=== PATIENT | female | born 1950 | race Two or more races ===

== ENCOUNTER 2024-02-24 10:56 | Outpatient (AMB) | payer MEDICARE, BC, SELFPAY ==
[2024-02-24 11:13] VITALS: BP 139/83; PULSE 73; RESP 17; TEMP 36.3; O2SAT 98; BMI 26.5
--- NOTE | 2024-02-24 11:13 | ORTHONT_ITS ---
Vital signs 02/24/24 11:13 Height 1.52 m Height Method Stated Weight 61.689 kg Weight Measurement Method Standing Scale BMI 26.5 BP 139/83 H Blood Pressure Source Automatic Cuff Blood Pressure Location Right Upper Arm Position Sitting Respiration 17 Pulse 73 Pulse Source Monitor Temp 97.4 F Temp Source Temporal Artery Scan Pulse Oximetry (%) 98 Oxygen Delivery Method Room Air Med/Allergies Allergies & Medications Allergies NKA* Allergy (Uncoded 02/24/24 11:14) Medication Reconciliation amlodipine 5 mg tablet (Norvasc) 5 mg PO BID #0 tabs 02/25/17 [History Confirmed 02/24/24] valsartan 160 mg tablet (Diovan) 160 mg PO BID #0 tabs 02/25/17 [History Confirmed 02/24/24] biotin 5,000 mcg disintegrating tablet 1 tab PO QDAY 09/26/17 [History Confirmed 02/24/24] cholecalciferol (vitamin D3) 50 mcg (2,000 unit) capsule (Vitamin D3) 1 tab PO QDAY 09/26/17 [History Confirmed 02/24/24] krill [id number] 1,500 mg-165 mg-67.5 mg capsule (Krill Oil ([place] 3 and 6)) 1 tab PO QDAY 09/26/17 [History Confirmed 02/24/24] simvastatin 10 mg tablet 10 mg PO QPM 09/26/17 [History Confirmed 02/24/24] meloxicam 7.5 mg tablet 7.5 mg PO QDAY #45 tabs 02/24/24 [Rx] Subjective Visit Visit for: follow up visit and knee Immunization / Flu Flu Vaccine in the Last 12 Months: Yes Flu Vaccine Exclusion Criteria: Already Received History of Present Illness Chief complaint: SURGERY CLEARANCE/KNEE Patient is a pleasant 73-year-old female with right hip pain and knee pain. She had a previous right knee injection and had minimal relief. She reports the pain is in her groin. She has difficulty internally rotating and rotating her hips. She is difficulty putting on socks and shoes. The pain can be excruciating but today it is okay. she has tried Tylenol and Advil. Personal History Occupation: RETIRED Red flag PMH: none Pain Pain level (0-10): 8 Pain duration: ALL DAY Pain location: groin, outside (lateral) and anterior Pain quality: sharp, dull and aching Pain timing: increases with activity Associated signs & symptoms: weakness and stiffness Ambulatory data Ambulatory device: none Treatments Improvement with previous injections: No Improvement with PT: No Improvement with NSAIDS: n/a Review of Systems Review of Systems: All systems negative unless otherwise noted in HPI. Exam Exam Patient is in no acute distress and is cooperative with the examination today. Breathing is nonlabored. In no respiratory distress. Patient has no paraspinal tenderness. Spinal deformity [cannot] be appreciated. The gait of the patient is [nonantalgic] Bilateral extremities were evaluated and demonstrates sensation intact to light touch. Palpable pedal pulses are present. No significant edema is present. Bilateral knees were examined and the patient has full strength and range of motion.. The left hip was examined. Patient was able to flex to 90 degrees, adduct to 30 degrees, abduct to 40 degrees, internally rotate to 20 degrees, and externally rotate to 20 degrees. Patient has a negative logroll. Stinchfield is negative. The patient is nontender diffusely to touch. The right hip was examined. Patient was able to flex to [90] degrees, adduct to [30] degrees, abduct to [40] degrees, internally rotate to [20] degrees, and externally rotate to [20] degrees. Patient has a Positive logroll. The stinchfield is Positive Assessment and Plan Problem List (1) Arthritis of right hip: Status: Acute Plan: Patient is a 73-year-old female with right hip pain and right hip arthritis.We discussed nonoperative versus operative options. We will start her with a arthritis medication such as meloxicam and we will get her set up for a hip injection. We will see the patient back in approximately 1 month after her hip injection to see how her relief is Advanced Care Planning Discussion Advance care planning discussed with:: patient Office Procedures GNS Level of Care Nursing/Assessment Patient Status: Established Patient Nursing Assessment/Reassesment: Medication Reconciliation, Update PMH in EMR and Vital Signs Coordination of Care: Complex Care and Chronic Disease 1-5, Education Complex Pt/Fam, Consent,records obtained, informed consent, Results/Orders obtained and Staff clarify orders Established Patient Charge Established Patient Point Assignment: 95 Established Patient Point Charge: EP Level 3 (80-115) Past Medical History Past Medical History Have you ever been diagnosed with any of the following: Neurological Problems Seizures: No Cardiology Problems Hypercholesterolemia: Yes (PO MEDS) Congestive Heart Failure: No Hypertension: Yes (PO MEDS) Respiratory Problems Chronic Obstructive Pulmonary Disease (COPD): No Smoking: No Smoking Exposure: No Stomache/Intestinal Problems Hepatitis: No Colorectal Cancer: No Genital/Urinary Problems Renal Disease: No Prostate Cancer: No Reproductive Problems Breast Cancer: Yes (LEFT BREAST) Endometriosis: No Genital Herpes: No Gonorrhea: No Pelvic Inflammatory Disease: No Previous Pregnancies: Yes () Syphilis: No Testicular Cancer: No Uterine Prolapse: No Musculoskeletal Problems Bone Cancer: No Endocrine Problems Diabetes Mellitus Type 1: No Diabetes Mellitus Type 2: No Blood Problems Anemia: No Leukemia: No Hemophilia: No Thalassemia: No Sickle Cell Disease: No Clotting Problems: No Other Problems Hospitalization: No Down Syndrome: No Developmental Delay: No Shingles: No Falls: No Blood Transfusions: No Blood Transfusion Reaction: No Anesthesia Reactions: No Organ Transplant: No Chemotherapy: No Radiation Therapy: Yes (LEFT BREAST CA 2016) Hyperbaric Therapy: No MRSA: No VRSA: No Vancomycin-Resistant Enterococci: No Human Immunodeficiency Virus (HIV): No Chicken Pox: No Measles: No Mumps: No Rubella (Bangladeshi Measles): No Pertussis: No Clostridium Difficile: No Cervical Cancer: No Lung Cancer: No Ovarian Cancer: No
== END 2024-02-24 11:35 | disposition home or self-care (01) ==
LOC: HODSRG 10:56
PROVIDERS: PCP Specialist; Referring Provider Specialist; Supervising Provider Orthopaedic Surgery Adult Reconstructive Orthopaedic Surgery; Visit Provider Orthopaedic Surgery Adult Reconstructive Orthopaedic Surgery
DX: M16.11 Unilateral primary osteoarthritis, right hip (principal); I10 Essential (primary) hypertension; E78.00 Pure hypercholesterolemia, unspecified
CPT/HCPCS: 99213; G0463

== ENCOUNTER 2024-04-27 14:08 | Outpatient (AMB) | payer MEDICARE, BC, SELFPAY ==
--- NOTE | 2024-04-27 14:31 | PD.ORTHCLVIS ---
Vital signs 04/27/24 14:33 Height 1.52 m Height Method Stated Weight 62.142 kg Weight Measurement Method Standing Scale BMI 26.9 BP 144/82 H Blood Pressure Source Automatic Cuff Blood Pressure Location Left Upper Arm Position Sitting Respiration 19 Pulse 76 Pulse Source Monitor Temp 97.8 F Temp Source Temporal Artery Scan Pulse Oximetry (%) 96 Oxygen Delivery Method Room Air Med/Allergies Allergies & Medications Allergies NKA* Allergy (Uncoded 04/27/24 14:34) Medication Reconciliation amlodipine 5 mg tablet (Norvasc) 5 mg PO BID #0 tabs 02/25/17 [History Confirmed 04/27/24] valsartan 160 mg tablet (Diovan) 160 mg PO BID #0 tabs 02/25/17 [History Confirmed 04/27/24] biotin 5,000 mcg disintegrating tablet 1 tab PO QDAY 09/26/17 [History Confirmed 04/27/24] cholecalciferol (vitamin D3) 50 mcg (2,000 unit) capsule (Vitamin D3) 1 tab PO QDAY 09/26/17 [History Confirmed 04/27/24] krill [id number]-koj-astax 1,500 mg-165 mg-67.5 mg capsule (Krill Oil ([place] 3 and 6)) 1 tab PO QDAY 09/26/17 [History Confirmed 04/27/24] simvastatin 10 mg tablet 10 mg PO QPM 09/26/17 [History Confirmed 04/27/24] meloxicam 7.5 mg tablet 7.5 mg PO QDAY #45 tabs 02/24/24 [Rx Confirmed 04/27/24] Exam Exam Patient is in no acute distress and is cooperative with the examination today. Breathing is nonlabored. In no respiratory distress. Patient has no paraspinal tenderness. Spinal deformity [cannot] be appreciated. The gait of the patient is [nonantalgic] Bilateral extremities were evaluated and demonstrates sensation intact to light touch. Palpable pedal pulses are present. No significant edema is present. Bilateral knees were examined and the patient has full strength and range of motion.. The left hip was examined. Patient was able to flex to 90 degrees, adduct to 30 degrees, abduct to 40 degrees, internally rotate to 20 degrees, and externally rotate to 20 degrees. Patient has a negative logroll. Stinchfield is negative. The patient is nontender diffusely to touch. The right hip was examined. Patient was able to flex to [90] degrees, adduct to [30] degrees, abduct to [40] degrees, internally rotate to [20] degrees, and externally rotate to [20] degrees. Patient has a Positive logroll. The stinchfield is Positive X-rays demonstrate moderate to severe right hip arthritis with joint space narrowing and osteophytes Assessment and Plan Problem List (1) Arthritis of right hip: Status: Acute Plan: Patient is a 73-year-old female with right hip arthritis of significant severity. We discussed total hip replacement a reasonable option. She reports he is not ready for hip replacement at this time which I think is okay. We can try continued conservative management. She would like to try physical therapy for now. She did not do well with meloxicam Advanced Care Planning Discussion Advance care planning discussed with:: patient Office Procedures GNS Level of Care Nursing/Assessment Patient Status: Established Patient Nursing Assessment/Reassesment: Medication Reconciliation, Update PMH in EMR and Vital Signs Coordination of Care: Complex Care and Chronic Disease 1-5, Education Complex Pt/Fam, Consent,records obtained, informed consent, Results/Orders obtained and Staff clarify orders Established Patient Charge Established Patient Point Assignment: 95 Established Patient Point Charge: EP Level 3 (80-115) MA Intake Visit Data Collection New Patient or Established: Established Patient (seen at [facility] within 3 years) Reason for Visit:: XRAY RESULTS HIP AND KNEE Seen by Clinical Staff ONLY (RN/MA): No Pipe Joints Supervisor Required: No PCP or OBGYN visit in last 3 months: Yes Hx Now: No Do You Feel Safe at Home: Yes Authorities Contacted: N/A Questionairres Past Medical History Past Medical History Have you ever been diagnosed with any of the following: Neurological Problems Seizures: No Cardiology Problems Hypercholesterolemia: Yes (PO MEDS) Congestive Heart Failure: No Hypertension: Yes (PO MEDS) Respiratory Problems Chronic Obstructive Pulmonary Disease (COPD): No Smoking: No Smoking Exposure: No Stomache/Intestinal Problems Hepatitis: No Colorectal Cancer: No Genital/Urinary Problems Renal Disease: No Prostate Cancer: No Reproductive Problems Breast Cancer: Yes (LEFT BREAST) Endometriosis: No Genital Herpes: No Gonorrhea: No Pelvic Inflammatory Disease: No Previous Pregnancies: Yes () Syphilis: No Testicular Cancer: No Uterine Prolapse: No Musculoskeletal Problems Bone Cancer: No Endocrine Problems Diabetes Mellitus Type 1: No Diabetes Mellitus Type 2: No Blood Problems Anemia: No Leukemia: No Hemophilia: No Thalassemia: No Sickle Cell Disease: No Clotting Problems: No Other Problems Hospitalization: No Down Syndrome: No Developmental Delay: No Shingles: No Falls: No Blood Transfusions: No Blood Transfusion Reaction: No Anesthesia Reactions: No Organ Transplant: No Chemotherapy: No Radiation Therapy: Yes (LEFT BREAST CA 2016) Hyperbaric Therapy: No MRSA: No VRSA: No Vancomycin-Resistant Enterococci: No Human Immunodeficiency Virus (HIV): No Chicken Pox: No Measles: No Mumps: No Rubella (Martiniquais Measles): No Pertussis: No Clostridium Difficile: No Cervical Cancer: No Lung Cancer: No Ovarian Cancer: No Subjective Visit Visit for: follow up visit and x-rays (RESULTS) Immunization / Flu Flu Vaccine in the Last 12 Months: No Flu Vaccine Exclusion Criteria: No Exclusion Criteria History of Present Illness Chief complaint: Right hip pain Patient is a 73-year-old female with right hip pain. She had a right hip injection 2 months ago and reported dramatic relief. The right hip injection helped with both her hip and knee pain. She reports difficulty crossing her legs Pain Pain level (0-10): 6 Pain duration: ALL DAY Pain location: inside (medial) Pain quality: sharp, dull and aching Pain timing: night, increases with activity and stairs Associated signs & symptoms: none Ambulatory data Ambulatory device: none Treatments Improvement with previous injections: No Improvement with PT: No Improvement with NSAIDS: no Review of Systems Review of Systems: All systems negative unless otherwise noted in HPI.
[2024-04-27 14:33] VITALS: BP 144/82; PULSE 76; RESP 19; TEMP 36.6; O2SAT 96; BMI 26.9
== END 2024-04-27 14:46 | disposition home or self-care (01) ==
LOC: HODSRG 14:08
PROVIDERS: PCP Specialist; Referring Provider Specialist; Supervising Provider Orthopaedic Surgery Adult Reconstructive Orthopaedic Surgery; Visit Provider Orthopaedic Surgery Adult Reconstructive Orthopaedic Surgery
DX: M16.11 Unilateral primary osteoarthritis, right hip (principal); I10 Essential (primary) hypertension; E78.00 Pure hypercholesterolemia, unspecified
CPT/HCPCS: 73502; 73562; 99213; G0463

== ENCOUNTER → 2024-04-27 | Outpatient (CLI) | payer MEDICARE, BC, SELFPAY ==
--- NOTE | 2024-04-27 08:55 | XR_ITS ---
Examination: Right knee 4 views TECHNIQUE: Standing AP oblique lateral axial right knee 4 views Exam date and time: April 27, 2024 0949 hours Comparison February 05, 2023 INDICATIONS: Onset right knee pain beginning one year ago FINDINGS: Spurring of the intercondylar spines Mild to moderate tricompartment osteoarthritis, most prominent patellofemoral joint No fracture IMPRESSION: Mild to moderate tricompartment osteoarthritis
--- NOTE | 2024-04-27 09:44 | XR_ITS ---
Examination:Right hip AP, lateral, AP pelvis 3 views Technique: Hip AP lateral, AP pelvis, 3 views Exam date and time:April 27, 2024 0958 hours INDICATIONS: Right hip pain beginning one year ago. FINDINGS: Moderate osteopenia Advanced narrowing right hip joint No hip or pelvic fracture IMPRESSION: Advanced narrowing right hip joint.
== END | disposition home or self-care (01) ==
PROVIDERS: PCP Specialist; Referring Provider Orthopaedic Surgery Adult Reconstructive Orthopaedic Surgery; Visit Provider Orthopaedic Surgery Adult Reconstructive Orthopaedic Surgery
DX: M17.11 Unilateral primary osteoarthritis, right knee (principal); M25.851 Other specified joint disorders, right hip
CPT/HCPCS: 73502; 73562

== ENCOUNTER → 2024-05-19 | Outpatient (CLI) | payer MEDICARE, BC, SELFPAY ==
[2024-05-19 11:47] LABS: Alanine Aminotransferase 12 U/L (10-49); Albumin, Serum 4.7 gm/dL (3.4-4.8); Alkaline Phosphatase 77 U/L (46-116); Anion Gap 12 (7-16); Aspartate Amino Transferase 16 U/L (0-34); BUN/Creatinine Ratio 16 Ratio (12-20); Bilirubin,Total 0.8 mg/dL (0.3-1.2); Blood Urea Nitrogen 11 mg/dL (9-23); Calcium 9.7 mg/dL (8.3-10.6); Calcium (Corrected) 9.7 mg/dL (8.5-10.1); Carbon Dioxide 24.1 mMol/L (20.0-31.0); Cardiac Risk Estimate 2.2 RATIO (3.7-5.6); Chloride 107 mMol/L (98-107); Cholesterol 153 mg/dL (132-200); Creatinine (Component) 0.7 mg/dL (0.6-1.3); Globulin 2.3 gm/dL (2.3-3.5); Glucose 110 mg/dL (74-106); HDL Cholesterol 71 mg/dL (40-60); LDL Cholesterol,Calculated 62 mg/dL (0-130); Osmolality,Calculated 285 (275-295); Potassium 3.8 mMol/L (3.4-5.1); Sodium 143 mMol/L (136-145); Triglycerides 102 mg/dL (30-150); eGFR > 60 See Note
[2024-05-19 11:53] LABS: Creatinine MALB Rnd Ur 81 mg/dL (30-125); Microalbumin Creat Ratio 27 mg/gCrea (<30); Microalbumin, Random Urine 22 mg/L (0-300)
== END | disposition home or self-care (01) ==
LOC: COPL 10:00
PROVIDERS: PCP Specialist; Referring Provider Specialist; Visit Provider Specialist
DX: E78.2 Mixed hyperlipidemia (principal); I10 Essential (primary) hypertension
CPT/HCPCS: 36415; 80053; 80061; 82043; 82570

== ENCOUNTER 2024-05-21 13:54 | Outpatient (AMB) | payer MEDICARE, BC, SELFPAY ==
--- NOTE | 2024-05-21 14:04 | ORTHONT_ITS ---
Vital signs 05/21/24 14:05 Height 1.52 m Height Method Stated Weight 60.923 kg Weight Measurement Method Standing Scale BMI 26.4 BP 139/82 H Blood Pressure Source Automatic Cuff Blood Pressure Location Left Upper Arm Position Sitting Respiration 18 Pulse 80 Pulse Source Monitor Temp 96.2 F L Temp Source Temporal Artery Scan Pulse Oximetry (%) 98 Oxygen Delivery Method Room Air Med/Allergies Allergies & Medications Allergies NKA* Allergy (Uncoded 05/21/24 14:06) Medication Reconciliation amlodipine 5 mg tablet (Norvasc) 5 mg PO BID #0 tabs 02/25/17 [History Confirmed 05/21/24] valsartan 160 mg tablet (Diovan) 160 mg PO BID #0 tabs 02/25/17 [History Confirmed 05/21/24] biotin 5,000 mcg disintegrating tablet 1 tab PO QDAY 09/26/17 [History Confirmed 05/21/24] cholecalciferol (vitamin D3) 50 mcg (2,000 unit) capsule (Vitamin D3) 1 tab PO QDAY 09/26/17 [History Confirmed 05/21/24] krill [id number]-aic-[id number]-yow-astax 1,500 mg-165 mg-67.5 mg capsule (Krill Oil ([place] 3 and 6)) 1 tab PO QDAY 09/26/17 [History Confirmed 05/21/24] simvastatin 10 mg tablet 10 mg PO QPM 09/26/17 [History Confirmed 05/21/24] meloxicam 7.5 mg tablet 7.5 mg PO QDAY #45 tabs 02/24/24 [Rx Confirmed 05/21/24] Exam Exam Patient is in no acute distress and is cooperative with the examination today. Breathing is nonlabored. In no respiratory distress. Patient has no paraspinal tenderness. Spinal deformity [cannot] be appreciated. The gait of the patient is [nonantalgic] Bilateral extremities were evaluated and demonstrates sensation intact to light touch. Palpable pedal pulses are present. No significant edema is present. Bilateral knees were examined and the patient has full strength and range of motion.. The left hip was examined. Patient was able to flex to 90 degrees, adduct to 30 degrees, abduct to 40 degrees, internally rotate to 20 degrees, and externally rotate to 20 degrees. Patient has a negative logroll. Stinchfield is negative. The patient is nontender diffusely to touch. The right hip was examined. Patient was able to flex to [90] degrees, adduct to [30] degrees, abduct to [40] degrees, internally rotate to [20] degrees, and externally rotate to [20] degrees. Patient has a Positive logroll. The stinchfield is Positive X-rays demonstrate moderate to severe right hip arthritis with joint space narrowing and osteophytes Assessment and Plan Problem List (1) Arthritis of right hip: Status: Acute Plan: Patient is a 73-year-old female with right hip arthritis of significant severity. We discussed total hip replacement as a reasonable option. At this point in time, she would like to proceed with a total hip replacement. I will do an anterior approach given her body habitus. She is failed injections, anti- inflammatories and thus we consider total hip placement a reasonable option The nature and purpose of the total hip replacement, alternative method(s) of treatment, the material risks involved, and the possibility of complications we re fully explained to the patient. The patient does NOT have any of the following contraindications to FRACISCO: - Active infection of the hip joint, OR - Active systemic bacteremia, OR - Active skin infection or open wound at surgical site, OR - Neuropathic arthritis, OR - Severe, rapidly progressive neurological disease, OR - Severe medical condition that makes risks of the surgery outweigh the poten tial benefit The patient was told the most common risks and complications associated with a total hip replacement include, but are not limited to: blood clots in the leg, fatal pulmonary embolism, dislocation of the prosthesis, intraoperative and postoperative fractures of the femur or acetabulum, infection, failure of the prosthesis or grafting materials, complications from anesthesia, reactions to blood transfusions, postoperative leg length inequality, instability of the hip replacement, nerve damage or injury, vascular injury, delayed wound healing, infection, other injury or even . In addition, there are risks associated with anesthesia given during this operation. Also, the patient was told that after undergoing a total hip replacement there may still be persistent pain or disability. The patient was informed that the success of this operation in part depends upon the mechanical devices which are going to be implanted and that these devices can fail or malfunction, and may need to be repaired or replaced and there are no guarantees as to the longevity of this device or its parts and that it or its parts could fail prematurely. The patient was also notified that during the course of surgery, there may be a need to use bone graft from donors, and that any bone graft used will be carefully screened for communicable diseases, including AIDS, hepatitis, Jose-Creutzfeldt, or other diseases, but despite the screening procedures, there is a small chance that they could contract one of these diseases. Finally, the patient was asked to follow completely and fully with all advice and recommended treatments, and that recovery and ultimate outcome are affected by their compliance with recommended treatment. We discussed the risks, benefits and treatment alternatives, and the patient is interested in proceeding with surgery. We will try to set this up as expeditiously as possible. Advanced Care Planning Discussion Advance care planning discussed with:: patient Office Procedures GNS Level of Care Nursing/Assessment Patient Status: Established Patient Nursing Assessment/Reassesment: Medication Reconciliation, Update PMH in EMR and Vital Signs Coordination of Care: Complex Care and Chronic Disease 1-5, Education Complex Pt/Fam, Consent,records obtained, informed consent, Results/Orders obtained and Staff clarify orders Established Patient Charge Established Patient Point Assignment: 95 Established Patient Point Charge: EP Level 3 (80-115) MA Intake Visit Data Collection New Patient or Established: Established Patient (seen at [facility] within 3 years) Reason for Visit:: RIGHT HIP PAIN FOLLOW UP Seen by Clinical Staff ONLY (RN/MA): No Offal Roller Required: No PCP or OBGYN visit in last 3 months: Yes Hx Now: No Do You Feel Safe at Home: Yes Authorities Contacted: N/A Questionairres Past Medical History Past Medical History Have you ever been diagnosed with any of the following: Neurological Problems Seizures: No Cardiology Problems Hypercholesterolemia: Yes (PO MEDS) Congestive Heart Failure: No Hypertension: Yes (PO MEDS) Respiratory Problems Chronic Obstructive Pulmonary Disease (COPD): No Smoking: No Smoking Exposure: No Stomache/Intestinal Problems Hepatitis: No Colorectal Cancer: No Genital/Urinary Problems Renal Disease: No Prostate Cancer: No Reproductive Problems Breast Cancer: Yes (LEFT BREAST) Endometriosis: No Genital Herpes: No Gonorrhea: No Pelvic Inflammatory Disease: No Previous Pregnancies: Yes () Syphilis: No Testicular Cancer: No Uterine Prolapse: No Musculoskeletal Problems Bone Cancer: No Endocrine Problems Diabetes Mellitus Type 1: No Diabetes Mellitus Type 2: No Blood Problems Anemia: No Leukemia: No Hemophilia: No Thalassemia: No Sickle Cell Disease: No Clotting Problems: No Other Problems Hospitalization: No Down Syndrome: No Developmental Delay: No Shingles: No Falls: No Blood Transfusions: No Blood Transfusion Reaction: No Anesthesia Reactions: No Organ Transplant: No Chemotherapy: No Radiation Therapy: Yes (LEFT BREAST CA 2016) Hyperbaric Therapy: No MRSA: No VRSA: No Vancomycin-Resistant Enterococci: No Human Immunodeficiency Virus (HIV): No Chicken Pox: No Measles: No Mumps: No Rubella (Maced[place] Measles): No Pertussis: No Clostridium Difficile: No Cervical Cancer: No Lung Cancer: No Ovarian Cancer: No Subjective Visit Visit for: follow up visit and hip Immunization / Flu Flu Vaccine in the Last 12 Months: No Flu Vaccine Exclusion Criteria: No Exclusion Criteria History of Present Illness Chief complaint: Right hip pain Patient is a 73-year-old female with right hip pain. She had a right hip injection 2 months ago and she reported dramatic relief. However the, the pain has increased again. The pain is affecting her quality life and happiness and the pain is primarily in the groin. Pain Pain level (0-10): 8 Pain duration: CONSTANT Pain location: inside (medial) Pain quality: aching Pain timing: increases with activity Associated signs & symptoms: none Ambulatory data Ambulatory device: none Treatments Improvement with previous injections: No Improvement with PT: No Improvement with NSAIDS: no Review of Systems Review of Systems: All systems negative unless otherwise noted in HPI.
[2024-05-21 14:05] VITALS: BP 139/82; PULSE 80; RESP 18; TEMP 35.7; O2SAT 98; BMI 26.4
== END 2024-05-21 14:42 | disposition home or self-care (01) ==
LOC: HODSRG 13:54
PROVIDERS: PCP Specialist; Referring Provider Specialist; Supervising Provider Orthopaedic Surgery Adult Reconstructive Orthopaedic Surgery; Visit Provider Orthopaedic Surgery Adult Reconstructive Orthopaedic Surgery
DX: M16.11 Unilateral primary osteoarthritis, right hip (principal); M25.551 Pain in right hip; I10 Essential (primary) hypertension; E78.00 Pure hypercholesterolemia, unspecified
CPT/HCPCS: 99213; G0463

== ENCOUNTER → 2024-06-04 | Outpatient (CLI) | payer MEDICARE, BC, SELFPAY ==
--- NOTE | 2024-06-04 11:50 | XR_ITS ---
Examination: Screening digital mammography, bilateral Computer aided detection 3-D breast Tomosynthesis, bilateral Date and time of exam: June 04, 2024 1155 hours Compared to mammograms dating to March 01, 2019 Indication: Screening Technique: Nonmagnified MLO, CC views of the breasts to been obtained, reconstructed from 3-D Tomosynthesis images. R2 computer aided detection program utilized for evaluation of suspicious masses and/or abnormal calcifications. 3-D Tomosynthesis images obtained. Findings: The breasts are heterogeneously dense, which may obscure small masses Surgical clips posterior left breast with scar formation consistent with treated left breast carcinoma history 15 mm focal asymmetry 6:00 position left breast Impression: BI-RADS Category 0: Incomplete: Need additional imaging evaluation 15 mm focal asymmetry 6:00 position left breast, recommend follow-up spot tomographic views of this asymmetry as well as bilateral breast sonography to complete the workup.
== END | disposition home or self-care (01) ==
PROVIDERS: PCP Specialist; Referring Provider Specialist; Visit Provider Specialist
DX: Z12.31 Encounter for screening mammogram for malignant neoplasm of breast (principal); N64.89 Other specified disorders of breast
CPT/HCPCS: 77063; 77067

== ENCOUNTER → 2024-06-07 | Outpatient (CLI) | payer MEDICARE, BC, SELFPAY ==
--- NOTE | 2024-06-07 | XR_ITS ---
Examination: Diagnostic digital mammography, unilateral, left Computer aided detection 3-D breast Tomosynthesis, unilateral Date and time of exam: 06/07/2024, 4:06 PM Comparisons: February 2019 through June 03 Indications: Further evaluation of focal asymmetry seen on recent screening exam. Personal history of left breast cancer treated with lumpectomy and radiation 2016 Technique: Nonmagnified MLO, CC views of the left breast have been obtained, reconstructed from 3-D Tomosynthesis images. R2 computer aided detection program utilized for evaluation of suspicious masses and/or abnormal calcifications. 3-D Tomosynthesis images obtained. Technologist: Findings: The breasts are heterogeneously dense, which may obscure small masses. The previously described focal asymmetry does not persist on spot compression views and represents superimposition of normal fibroglandular tissue. Stable postoperative changes are seen in the left breast with surgical clips. Otherwise, no evidence of abnormal masses or suspicious calcifications. Impression: BI-RADS category 2: Benign findings Recommend 1 year follow-up mammogram
--- NOTE | 2024-06-07 16:01 | XR_ITS ---
Examination: Breast ultrasound complete, bilateral Date and time of exam: June 07, 2024 1623 hrs. Indications: Mammogram June 04, 2024 15 mm focal asymmetry 6:00 position left breast Technique: Real-time grayscale ultrasonographic imaging bilateral breasts, including all 4 quadrants as well as nipple retroareolar and axillary regions. Findings: Sonographic images right and left breast demonstrated no cystic or solid masses Impression: BI-RADS Category 1: Negative studies
== END | disposition home or self-care (01) ==
LOC: CDIM 15:52
PROVIDERS: Referring Provider Specialist; Visit Provider Specialist
DX: R92.322 Mammographic fibroglandular density, left breast (principal); N64.89 Other specified disorders of breast
CPT/HCPCS: 76641; 77061; 77065; G0279

== ENCOUNTER → 2024-06-30 | Outpatient (CLI) | payer MEDICARE, BC, SELFPAY ==
[2024-06-30 15:27] LABS: Basophils # (Auto) 0.1 Thou/mm3 (0.0-0.2); Basophils % (Auto) 1 % (0-2.5); Eosinophils # (Auto) 0.3 Thou/mm3 (0.0-0.5); Eosinophils % (Auto) 4 % (0-10); Hematocrit 38.7 % (36.0-46.0); Hemoglobin 12.8 g/dL (12.0-16.0); Immature Granulocytes % (Auto) 0 % (0-0); Immature Granulocytes Auto 0.02 Thou/mm3 (0.00-0.00); Lymphocytes # (Auto) 1.9 Thou/mm3 (1.0-4.8); Lymphocytes % (Auto) 23 % (10-50); Mean Corpuscular HGB Conc 33.1 g/dl (31.0-37.0); Mean Corpuscular Hemoglobin 29.4 pg (25.0-35.0); Mean Corpuscular Volume 89 fL (80-100); Monocytes # (Auto) 0.7 Thou/mm3 (0.0-0.8); Monocytes % (Auto) 8 % (0-12); Neutrophils # (Auto) 5.2 Thou/mm3 (1.8-7.7); Neutrophils % (Auto) 64 % (37-80); Nucleated Red Blood Cell % 0 /100 WBC (0); Platelet Count 279 Thou/mm3 (140-440); RDW Standard Deviation 42.1 fL (36.4-46.3); Red Blood Count 4.36 Miln/mm3 (4.00-5.20); White Blood Count 8.2 Thou/mm3 (3.6-11.0)
[2024-06-30 15:36] LABS: Partial Thromboplastin Time 24.5 Seconds (22.0-36.0); Prothrombin Time 10.9 Seconds (9.0-12.2)
[2024-06-30 15:53] LABS: Collection Type, Urine Clean Catch
[2024-06-30 15:57] LABS: Alanine Aminotransferase 13 U/L (10-49); Albumin, Serum 4.7 gm/dL (3.4-4.8); Alkaline Phosphatase 80 U/L (46-116); Anion Gap 11 (7-16); Aspartate Amino Transferase 20 U/L (0-34); BUN/Creatinine Ratio 19 Ratio (12-20); Bilirubin,Total 0.4 mg/dL (0.3-1.2); Blood Urea Nitrogen 17 mg/dL (9-23); Calcium 9.7 mg/dL (8.3-10.6); Calcium (Corrected) 9.7 mg/dL (8.5-10.1); Carbon Dioxide 26.3 mMol/L (20.0-31.0); Chloride 107 mMol/L (98-107); Creatinine (Component) 0.9 mg/dL (0.6-1.3); Globulin 2.3 gm/dL (2.3-3.5); Glucose 104 mg/dL (74-106); Osmolality,Calculated 288 (275-295); Phosphorous 3.8 mg/dL (2.4-5.1); Potassium 4.1 mMol/L (3.4-5.1); Sodium 144 mMol/L (136-145); eGFR > 60 See Note
[2024-06-30 16:42] LABS: Bacteria,Urine Rare; Bilirubin,Urine Negative (Negative); Blood,Urine Negative (Negative); Clarity,Urine Clear (Clear/Hazy); Color,Urine Lt-Yellow (Lt Yel-Yel); Glucose, Urine Negative (Negative); Ketones,Urine Negative (Negative); Leukocyte Esterase,Urine Positive (Negative); Nitrite,Urine Negative (Negative); PH,Urine 6.5 (5.0-7.0); Protein,Urine Trace (Neg - Trace); RBC,Urine 4 /hpf (0-3); Specific Gravity,Urine 1.023 (1.001-1.035); Squamous Epithelial Cell,Urine 1 /hpf (0-5); Urobilinogen,Urine Negative mg/dL (0.0-1.0); WBC,Urine 14 /hpf (0-5)
[2024-06-30 16:49] LABS: Culture Indicated,Urine Yes
== END | disposition home or self-care (01) ==
LOC: COPL 14:28
PROVIDERS: PCP Specialist; Referring Provider Specialist; Visit Provider Specialist
DX: I10 Essential (primary) hypertension (principal); Z01.812 Encounter for preprocedural laboratory examination
CPT/HCPCS: 36415; 80053; 81001; 84100; 85025; 85610; 85730; 87077; 87086; 87186

== ENCOUNTER 2024-07-06 14:16 | Outpatient (AMB) | payer MEDICARE, BC, SELFPAY ==
--- NOTE | 2024-07-06 14:29 | PD.ORTHCLVIS ---
Vital signs 07/06/24 14:30 Height 1.52 m Height Method Measured Weight 59.477 kg Weight Measurement Method Standing Scale BMI 25.7 BP 143/79 H Blood Pressure Source Automatic Cuff Blood Pressure Location Left Upper Arm Position Sitting Respiration 18 Pulse 60 Pulse Source Monitor Temp 97.5 F Temp Source Temporal Artery Scan Pulse Oximetry (%) 97 Oxygen Delivery Method Room Air Med/Allergies Allergies & Medications Allergies NKA* Allergy (Uncoded 07/06/24 14:31) Medication Reconciliation amlodipine 5 mg tablet (Norvasc) 5 mg PO BID #0 tabs 02/25/17 [History Confirmed 07/06/24] valsartan 160 mg tablet (Diovan) 160 mg PO BID #0 tabs 02/25/17 [History Confirmed 07/06/24] biotin 5,000 mcg disintegrating tablet 1 tab PO QDAY 09/26/17 [History Confirmed 07/06/24] cholecalciferol (vitamin D3) 50 mcg (2,000 unit) capsule (Vitamin D3) 1 tab PO QDAY 09/26/17 [History Confirmed 07/06/24] krill [id number]-pnn-astax 1,500 mg-165 mg-67.5 mg capsule (Krill Oil (Dameron 3 and 6)) 1 tab PO QDAY 09/26/17 [History Confirmed 07/06/24] simvastatin 10 mg tablet 10 mg PO QPM 09/26/17 [History Confirmed 07/06/24] metoprolol succinate 25 mg tablet,extended release 24 hr 25 mg PO QDAY 07/06/24 [History Confirmed 07/06/24] terbinafine HCl 250 mg tablet 250 mg PO QDAY 07/06/24 [History Confirmed 07/06/24] Exam Exam Patient is in no acute distress and is cooperative with the examination today. Breathing is nonlabored. In no respiratory distress. Patient has no paraspinal tenderness. Spinal deformity [cannot] be appreciated. The gait of the patient is [nonantalgic] Bilateral extremities were evaluated and demonstrates sensation intact to light touch. Palpable pedal pulses are present. No significant edema is present. Bilateral knees were examined and the patient has full strength and range of motion.. The left hip was examined. Patient was able to flex to 90 degrees, adduct to 30 degrees, abduct to 40 degrees, internally rotate to 20 degrees, and externally rotate to 20 degrees. Patient has a negative logroll. Stinchfield is negative. The patient is nontender diffusely to touch. The right hip was examined. Patient was able to flex to [90] degrees, adduct to [30] degrees, abduct to [40] degrees, internally rotate to [20] degrees, and externally rotate to [20] degrees. Patient has a Positive logroll. The stinchfield is Positive X-rays demonstrate moderate to severe right hip arthritis with joint space narrowing and osteophytes Assessment and Plan Problem List (1) Arthritis of right hip: Status: Acute Plan: Patient is a 73-year-old female with right hip arthritis of significant severity. We discussed total hip replacement as a reasonable option. At this point in time, she would like to proceed with a total hip replacement. I will do an anterior approach given her body habitus. She gas failed injections, anti-inflammatories and thus we consider total hip placement a reasonable option. She is set up for surgery next week The nature and purpose of the total hip replacement, alternative method(s) of treatment, the material risks involved, and the possibility of complications were fully explained to the patient. The patient does NOT have any of the following contraindications to FRACISCO: - Active infection of the hip joint, OR - Active systemic bacteremia, OR - Active skin infection or open wound at surgical site, OR - Neuropathic arthritis, OR - Severe, rapidly progressive neurological disease, OR - Severe medical condition that makes risks of the surgery outweigh the potential benefit The patient was told the most common risks and complications associated with a total hip replacement include, but are not limited to: blood clots in the leg, fatal pulmonary embolism, dislocation of the prosthesis, intraoperative and postoperative fractures of the femur or acetabulum, infection, failure of the prosthesis or grafting materials, complications from anesthesia, reactions to blood transfusions, postoperative leg length inequality, instability of the hip replacement, nerve damage or injury, vascular injury, delayed wound healing, infection, other injury or even . In addition, there are risks associated with anesthesia given during this operation. Also, the patient was told that after undergoing a total hip replacement there may still be persistent pain or disability. The patient was informed that the success of this operation in part depends upon the mechanical devices which are going to be implanted and that these devices can fail or malfunction, and may need to be repaired or replaced and there are no guarantees as to the longevity of this device or its parts and that it or its parts could fail prematurely. The patient was also notified that during the course of surgery, there may be a need to use bone graft from donors, and that any bone graft used will be carefully screened for communicable diseases, including AIDS, hepatitis, Jose-Creutzfeldt, or other diseases, but despite the screening procedures, there is a small chance that they could contract one of these diseases. Finally, the patient was asked to follow completely and fully with all advice and recommended treatments, and that recovery and ultimate outcome are affected by their compliance with recommended treatment. We discussed the risks, benefits and treatment alternatives, and the patient is interested in proceeding with surgery. We will try to set this up as expeditiously as possible. Advanced Care Planning Discussion Advance care planning discussed with:: patient Office Procedures GNS Level of Care Nursing/Assessment Patient Status: Established Patient Nursing Assessment/Reassesment: Medication Reconciliation, Update PMH in EMR and Vital Signs Coordination of Care: Complex Care/Chronic Disease 5 or more, Education Complex Pt/Fam, Consent,records obtained, informed consent and Staff clarify orders Established Patient Charge Established Patient Point Assignment: 100 Established Patient Point Charge: EP Level 3 (80-115) MA Intake Visit Data Collection New Patient or Established: Established Patient (seen at [facility] within 3 years) Reason for Visit:: PRE OP RIGHT FRACISCO Do You Feel Safe at Home: Yes Questionairres Past Medical History Past Medical History Have you ever been diagnosed with any of the following: Neurological Problems Seizures: No Cardiology Problems Hypercholesterolemia: Yes (PO MEDS) Congestive Heart Failure: No Hypertension: Yes (PO MEDS) Respiratory Problems Chronic Obstructive Pulmonary Disease (COPD): No Smoking: No Smoking Exposure: No Stomache/Intestinal Problems Hepatitis: No Colorectal Cancer: No Genital/Urinary Problems Renal Disease: No Prostate Cancer: No Reproductive Problems Breast Cancer: Yes (LEFT BREAST) Endometriosis: No Genital Herpes: No Gonorrhea: No Pelvic Inflammatory Disease: No Previous Pregnancies: Yes () Syphilis: No Testicular Cancer: No Uterine Prolapse: No Musculoskeletal Problems Bone Cancer: No Endocrine Problems Diabetes Mellitus Type 1: No Diabetes Mellitus Type 2: No Blood Problems Anemia: No Leukemia: No Hemophilia: No Thalassemia: No Sickle Cell Disease: No Clotting Problems: No Other Problems Hospitalization: No Down Syndrome: No Developmental Delay: No Shingles: No Falls: No Blood Transfusions: No Blood Transfusion Reaction: No Anesthesia Reactions: No Organ Transplant: No Chemotherapy: No Radiation Therapy: Yes (LEFT BREAST CA 2016) Hyperbaric Therapy: No MRSA: No VRSA: No Vancomycin-Resistant Enterococci: No Human Immunodeficiency Virus (HIV): No Chicken Pox: No Measles: No Mumps: No Rubella ([place] Measles): No Pertussis: No Clostridium Difficile: No Cervical Cancer: No Lung Cancer: No Ovarian Cancer: No Subjective Visit Visit for: follow up visit and hip Immunization / Flu Flu Vaccine in the Last 12 Months: Yes Flu Vaccine Exclusion Criteria: Already Received History of Present Illness Chief complaint: PRE OP RIGHT FRACISCO Patient is a 73-year-old female with right hip pain. She had a right hip injection 2 months ago and she reported dramatic relief. However the, the pain has increased again. The pain is affecting her quality life and happiness and the pain is primarily in the groin. She is here for her preop appointment. We will plan to do an anterior total hip replacement Personal History Red flag PMH: none BMI Counceling provided: Yes Pain Pain level (0-10): 10 Pain duration: CONSTANT Pain location: inside (medial) Pain quality: sharp Pain timing: night, increases with activity and stairs Associated signs & symptoms: none Ambulatory data Ambulatory device: none Treatments Improvement with previous injections: No Improvement with PT: No Improvement with NSAIDS: no Review of Systems Review of Systems: All systems negative unless otherwise noted in HPI.
[2024-07-06 14:30] VITALS: BP 143/79; PULSE 60; RESP 18; TEMP 36.4; O2SAT 97; BMI 25.7
== END 2024-07-06 14:44 | disposition home or self-care (01) ==
LOC: HODSRG 14:16
PROVIDERS: PCP Specialist; Referring Provider Specialist; Supervising Provider Orthopaedic Surgery Adult Reconstructive Orthopaedic Surgery; Visit Provider Orthopaedic Surgery Adult Reconstructive Orthopaedic Surgery
DX: M16.11 Unilateral primary osteoarthritis, right hip (principal); M25.551 Pain in right hip
CPT/HCPCS: 99213; G0463

== ENCOUNTER → 2024-07-06 | Outpatient (CLI) | payer MEDICARE, BC, SELFPAY ==
--- NOTE | 2024-07-06 15:12 | XR_ITS ---
Examination: CT bilateral lower extremities, without contrast. 2-D sagittal reconstructions. 2-D coronal reconstructions. 3-D reconstructions. Date and time of exam:July 06, 2024 1543 hours INDICATIONS: Diagnosis right hip pain, osteoarthritis 2 years CTDI: vol (mGy):8.33 DLP: (mGycm):484 Technique: Multiple 1.25 mm axial sections of the bilateral lower extremities without intravenous contrast have been obtained. 2-D sagittal and coronal reconstructions have been obtained. 3-D reconstructions have been obtained. Low dose protocols were performed. One or more of the following dose reduction techniques were used; automated exposure control, adjustment of the mA and/or KV according to patient size, use of iterative reconstruction technique. Findings: Severe osteopenia Advanced right hip joint osteoarthritis, severe narrowing right hip joint with subarticular cyst formation No fracture Mild to moderate narrowing left hip joint Mild narrowing medial joint spaces knees Moderate narrowing right lateral patellofemoral joint Moderate to advanced narrowing lateral left patellofemoral joint IMPRESSION: Advanced right hip osteoarthritis
== END | disposition home or self-care (01) ==
PROVIDERS: Referring Provider Orthopaedic Surgery Adult Reconstructive Orthopaedic Surgery; Visit Provider Orthopaedic Surgery Adult Reconstructive Orthopaedic Surgery
DX: M16.11 Unilateral primary osteoarthritis, right hip (principal)
CPT/HCPCS: 72192; 73700

== ENCOUNTER 2024-07-14 05:50 | Day surgery (SDC) | payer MEDICARE, BC, SELFPAY ==
[2024-07-12 07:51] VITALS: BMI 25.5
[2024-07-12 08:31] LABS: Basophils # (Auto) 0.1 Thou/mm3 (0.0-0.2); Basophils % (Auto) 1 % (0-2.5); Eosinophils # (Auto) 0.2 Thou/mm3 (0.0-0.5); Eosinophils % (Auto) 3 % (0-10); Hemoglobin 13.4 g/dL (12.0-16.0); Immature Granulocytes % (Auto) 0 % (0-0); Immature Granulocytes Auto 0.02 Thou/mm3 (0.00-0.00); Lymphocytes # (Auto) 1.5 Thou/mm3 (1.0-4.8); Lymphocytes % (Auto) 20 % (10-50); Mean Corpuscular HGB Conc 33.5 g/dl (31.0-37.0); Mean Corpuscular Hemoglobin 29.4 pg (25.0-35.0); Mean Corpuscular Volume 88 fL (80-100); Monocytes # (Auto) 0.5 Thou/mm3 (0.0-0.8); Monocytes % (Auto) 7 % (0-12); Neutrophils # (Auto) 5.2 Thou/mm3 (1.8-7.7); Neutrophils % (Auto) 68 % (37-80); Nucleated Red Blood Cell % 0 /100 WBC (0); Platelet Count 296 Thou/mm3 (140-440); RDW Standard Deviation 41.4 fL (36.4-46.3); Red Blood Count 4.56 Miln/mm3 (4.00-5.20); White Blood Count 7.6 Thou/mm3 (3.6-11.0)
[2024-07-12 08:46] LABS: Alanine Aminotransferase 10 U/L (10-49); Albumin, Serum 4.6 gm/dL (3.4-4.8); Albumin/Globulin Ratio 1.6 (1.2-2.2); Alkaline Phosphatase 79 U/L (46-116); Anion Gap 10 (7-16); Aspartate Amino Transferase 18 U/L (0-34); BUN/Creatinine Ratio 14 Ratio (12-20); Bilirubin,Total 0.6 mg/dL (0.3-1.2); Blood Urea Nitrogen 10 mg/dL (9-23); Calcium 10.3 mg/dL (8.3-10.6); Calcium (Corrected) 10.3 mg/dL (8.5-10.1); Carbon Dioxide 25.9 mMol/L (20.0-31.0); Chloride 107 mMol/L (98-107); Creatinine (Component) 0.7 mg/dL (0.6-1.3); Estimated Creatinine Clearance 58.5 mL/min (>60); Globulin 2.8 gm/dL (2.3-3.5); Glucose 110 mg/dL (74-106); Osmolality,Calculated 284 (275-295); Potassium 3.9 mMol/L (3.4-5.1); Sodium 143 mMol/L (136-145); Total Protein 7.4 gm/dL (5.7-8.2); eGFR > 60 See Note
[2024-07-12 08:53] LABS: Partial Thromboplastin Time 25.6 Seconds (22.0-36.0); Prothrombin Time 11.1 Seconds (9.0-12.2)
--- NOTE | 2024-07-13 14:16 | SUR.PREOP ---
Pt notified to come in at 0545 tomorrow for surgery.
--- NOTE | 2024-07-13 14:16 | SUR.PREOP ---
Cardiac records reviewed with Dr Waite.
[2024-07-14] VITALS (16 sets, daily range): BP systolic 108–146; BP diastolic 55–75; PULSE 57–83; RESP 12–16; TEMP 36.2–37; O2SAT 94–98; BMI 25.5; BMI 13.0
[2024-07-14] MEDS: MELOXICAM 7.5 MG TABLET PO (06:56)
[2024-07-14] MEDS: ACETAMINOPHEN 325 MG TABLET 650 MG PO (06:56)
[2024-07-14] MEDS: PREGABALIN 75 MG CAPSULE PO (06:57)
[2024-07-14] MEDS: RINGERS LACTATED 1000 ML 1,000 ML 20 ML IV (06:57)
--- NOTE | 2024-07-14 07:00 | XR_ITS ---
Examination: Right hip 3 views Fluoroscopy Exam date and time: July 14, 2024 1049 hours INDICATIONS: Total right hip arthroplasty today TECHNIQUE AND FINDINGS: AP right hip 3 views Fluoroscopy 16 seconds radiation dose 0.907 Total right hip arthroplasty. Satisfactory alignment IMPRESSION: Total right hip arthroplasty with satisfactory alignment
--- NOTE | 2024-07-14 07:23 | CHAP ---
Prayed with patient before procedure.
--- NOTE | 2024-07-14 09:56 | SUR.OPER ---
updated on case status/progress via phone by Michelle DIXON at approx. [phone].
--- NOTE | 2024-07-14 10:09 | PD.SUROPNT ---
Date of Procedure 07/14/24 Pre Op Diagnosis right hip osteoarthritis Post Op Diagnosis right hip osteoarthritis Procedure right anterior joselin total hip replacement Findings full thickness cartilage loss and ostoephytes Procedure Description Indications: The patient is a 73 y.o. year-old male with a long standing history of right hip pain. After considering the patient's condition and the impact of their hip on the patient's quality of life and activities of daily living, total hip replacement was offered as a reasonable option. Prior to the surgery I discussed the nature of the total hip replacement surgery including alternatives to surgery and the purpose of, and indications for proceeding with surgery. I discussed that this is an elective operation and that the patient should carefully weigh their options before proceeding with surgery. I discussed that this surgery is a shared decision between the patient and the surgeon. Risks and benefits and alternatives of the procedure have been explained to the patient and their family. Anesthesia complications and risks include but are not limited to stroke, heart attack, and . The surgical risks include but are not limited to infection, instability/dislocation, bleeding, nerve and blood vessel injury, deep vein thrombosis, pulmonary embolus, stiffness, pain, scar, need for reoperation, leg length discrepancy, thigh numbness, weakness, and mechanical failure of the implant including loosening, metal complications, metal allergy, wear or breakage. I discussed the expected recovery from surgery and the importance of compliance with all our pre and post-operative recommendations in order to maximize the recovery. The patient understands the risks of loss of life, loss of limb and, loss of function and wishes to proceed. A signed and witnessed consent was obtained and placed in the chart. Procedure in Detail: The patient was identified in the preoperative area. A signed and witness consent was confirmed in the chart. The surgery team confirmed with the patient the operative plan and surgical site. The surgical site was confirmed by the patient and marked by the surgical team. The patient was given the opportunity to ask any further questions and all questions were answered. The patient was brought to the operating room where anesthesia was induced by the anesthesia team without incident. The patient was placed in the supine position on a HANA table with the feet well padded in the boots. All extremities were padded to ensure adequate protection. A timeout was performed prior to the procedure which verified the correct patient, positioning, operation to be performed, operative site, antibiotics, allergies, imaging, and any other concerns. All parties were in agreement. The operative site was cleaned and draped in the usual sterile fashion. A final timeout was performed with all parties in agreement. We first placed arrays on the contralateral side and attached the hip array. An anterior approach to the hip was utilized. A 10cm skin incision was made just distal and lateral to the ASIS. This was taken down through skin and subcutaneous tissue using a 10 blade. Bleeding was controlled using electrocautery. The fascia was identified and split in line with the its fibers. The plane medial to the TFL was developed. Next the lateral femoral circumflex vessel was cauterized. The capsule over the femoral neck was exposed and a T shaped capsulotomy performed. The two leaflets were tagged. A femoral neck osteotomy was then performed and the head removed. Acetabular retractors were placed and the cup prepared with sequential reaming under fluoroscopic guidance after obtaining a proper AP matching the standing film as best as possible and then centering over the cup to avoid paralax. We reamed line to line and good bleeding bone was obtained using the [employer] robot. We then placed a press fit lisa cup getting proper version and inclination off of c-arm imaging and robotic guidance. There was good press fit. The anterior rim of the cup was well covered. Two screws were placed and confirmed below the rim of the inner cup followed by the liner which was confirmed fully seated circumferentially. Half of the joint injection was placed inferior and anterior to the acetabulum. Peripheral osteophytes were removed. Next the femur was exposed using the table and femoral elevator for assistance. For this case a capsular release was performed leaving the piriformis and rest of short external rotators intact. The canal was broached up until we obtained excellent axial and rotational stability and the hip was reduced. Fluoro was used to spinner hydraulic limb length, offset, and stem size. Stability was assessed by externally rotating the foot to 90 deg and then extending the hip 30 degrees. There was no subluxation of the femoral head in that position. The hip was dislocated. The stem position and depth was adjusted as needed per the fluoro shot. The neck was planed to the level of the broach using the calcar planar and then the stem removed. The canal was irrigated and the calcar inspected. There was no evidence of fracture and the bone bed was in good condition. The real stem was inserted and then impacted to the prior level of the broach with good solid fit. The calcar was again inspected and in good condition. The real head was impacted onto a clean taper and the hip reduced again. C-arm confirmed reduction and no evidence of complication. We then removed the hip array The wound was irrigated with dilute betadine followed by saline lavage. Hemostasis was obtained and noted through all layers. The remained of the joint cocktail was injected avoiding posterior by the nerve. The capsule was repaired with 0-vlock. The fascia closed with #2 Quill. The subcutaneous tissues closed with 2-0 vlock followed by 3-0 monocryl, dermabond, and prineo The drapes were then taken down and the patient moved to [facility]. Leg lengths were confirmed to be appropriate and the patient's lower extremities were warm and well perfused with brisk capillary refill and palpable pulses. The patient was then awoken, transferred to the [facility] and taken to the PACU in stable condition. They tolerated the procedure well. The patient's family/caregiviers were made aware of their condition. Final sponge and needle counts were correct x2. Implants: [place] cup size 48, 2 screws, 36+0 ceramic head, insignia size 3 ho Anesthesia GETA Implants lisa triathlon Pathology / specimen None Pathology comment: none Estimated Blood Loss 150 Condition Stable Disposition same day Surgeon Patrick Steward MD Surgical Staff Operation Date: 07/14/24 07:30 Case Staff Anesthesiologist: Kraig Waite RNtractor trailer driver: Rosa Tinsley
--- NOTE | 2024-07-14 10:16 | XR_ITS ---
Examination:Right hip AP, lateral, AP pelvis 3 views Technique: Hip AP lateral, AP pelvis, 3 views Exam date and time:July 14, 2024 1111 hours INDICATIONS: Postop total right hip arthroplasty FINDINGS: Total right hip arthroplasty. Satisfactory alignment Left hip bones of the pelvis intact IMPRESSION: Total right hip arthroplasty with satisfactory alignment.
--- NOTE | 2024-07-14 10:45 | SUR.PHASEI ---
pt received from OR in recovery bay 1. pt asleep but responds to voice, breathing unlabored on 4l nc, nasal airway in place. v/s stable. pt dressing to right and left hip cdi. report received from Dr. Waite and Ramon DIXON.
--- NOTE | 2024-07-14 11:45 | SUR.PHASEII ---
pt resting in [facility] with eyes closed, breathing unlabored, VS stable, dressing to right and left hip clean, dry, and intact, report from Brad DIXON
--- NOTE | 2024-07-14 12:17 | SUR.PHASEII ---
report to nolvia DIXON
[2024-07-14] MEDS: ONDANSETRON INJ 2 MG/ML INJ 2 ML 4 MG IV (12:56)
[2024-07-14] MEDS: METOCLOPRAMIDE INJ 5 MG/ML VIAL 2 ML 10 MG IVP (13:20)
--- NOTE | 2024-07-14 14:00 | SUR.PHASEII ---
pt awake and alert, breathing unlabored on room air. v/s stable. pt dressing to left and right hip cdi. pt able to ambulate using walker in PACU with steady gait. pt cleared by physical therapist Latanya. d/c instructions given with Dr. Gomez in room, all questions answered. pt d/c via wheelchair with all belongings.
--- NOTE | 2024-07-16 15:14 | PD.ANESPROG ---
Documentation for date of: 07/16/24 POST ANESTHESIA NOTE: Patient had GETA for R FRACISCO on 07/14/24. I just called and spoke with her on the phone and she denied any problems from anesthesia and said I am doing fine, thank you. Kraig Waite MD Anesthesia Progress Note Progress Note Most recent Vital Signs: Last Vital Signs Temp 97.2 F 07/14/24 13:45 Pulse 72 07/14/24 13:45 Resp 16 07/14/24 13:45 BP 112/61 07/14/24 13:45 Pulse Ox 95 07/14/24 13:45 O2 Flow Rate 2 07/14/24 13:30
== END 2024-07-14 14:00 | disposition home or self-care (01) ==
PROVIDERS: Anesthesiology; PCP Specialist; Referring Provider Orthopaedic Surgery Adult Reconstructive Orthopaedic Surgery; Visit Provider Orthopaedic Surgery Adult Reconstructive Orthopaedic Surgery
PROC: (CPT 27130; principal; 2024-07-14 07:30)
DX: M16.11 Unilateral primary osteoarthritis, right hip (principal); I10 Essential (primary) hypertension; E78.2 Mixed hyperlipidemia; Z86.16 Personal history of COVID-19; Z79.899 Other long term (current) drug therapy; Z85.3 Personal history of malignant neoplasm of breast
CPT/HCPCS: 27130; 20985; 36415; 73502; 76000; 80053; 85025; 85610; 85730; 97162; A4217; A4649; C1713; C1776; J0690; J1100; J2371; J2405; J2704; J2710; J2765; J3010; J3490; J7030; J7120; J7999; A9270; J1596; J1805

== ENCOUNTER 2024-07-29 10:59 | Outpatient (AMB) | payer MEDICARE, SELFPAY ==
--- NOTE | 2024-07-29 11:14 | ORTHONT_ITS ---
Vital signs 07/29/24 11:15 Height 1.52 m Height Method Stated Weight 60.47 kg Weight Measurement Method Standing Scale BMI 26.0 BP 147/80 H Blood Pressure Source Automatic Cuff Blood Pressure Location Right Upper Arm Position Sitting Respiration 17 Pulse 58 L Pulse Source Monitor Temp 98.4 F Temp Source Temporal Artery Scan Pulse Oximetry (%) 98 Oxygen Delivery Method Room Air Med/Allergies Allergies & Medications Allergies No Known Allergies Allergy (Verified 07/29/24 11:17) Medication Reconciliation amlodipine 5 mg tablet (Norvasc) 5 mg PO BID #0 tabs 02/25/17 [History Confirmed 07/29/24] valsartan 160 mg tablet (Diovan) 160 mg PO BID #0 tabs 02/25/17 [History Confirmed 07/29/24] biotin 5,000 mcg disintegrating tablet 1 tab PO QDAY 09/26/17 [History Confirmed 07/29/24] cholecalciferol (vitamin D3) 50 mcg (2,000 unit) capsule (Vitamin D3) 1 tab PO QDAY 09/26/17 [History Confirmed 07/29/24] metoprolol succinate 25 mg tablet,extended release 24 hr 25 mg PO QDAY 07/06/24 [History Confirmed 07/29/24] naproxen 250 mg tablet 250 mg PO BID PRN pain 07/12/24 [History Confirmed 07/29/24] rosuvastatin 5 mg tablet 5 mg PO DAILY 07/12/24 [History Confirmed 07/29/24] acetaminophen 500 mg tablet (Acetaminophen Extra Strength) 1,000 mg (2 x 500 mg) PO Q6H PRN pain #90 tabs 07/14/24 [Rx Confirmed 07/29/24] aspirin 81 mg tablet,delayed release 81 mg PO BID #60 tabs 07/14/24 [Rx Co nfirmed 07/29/24] doxycycline hyclate 100 mg tablet 100 mg PO BID #14 tabs 07/14/24 [Rx Confirmed 07/29/24] oxycodone 5 mg tablet 5 mg PO Q6H PRN pain #28 tabs 07/14/24 [Rx Confirmed 07/29/24] pregabalin 75 mg capsule 75 mg PO BID #45 caps 07/14/24 [Rx Confirmed 07/29/24] sennosides 8.6 mg-docusate sodium 50 mg tablet (Senna-S) 1 tab-cap PO QDAY #30 tabs 07/14/24 [Rx Confirmed 07/29/24] Exam Exam Patient is in no acute distress and is cooperative with the examination today. Breathing is nonlabored. In no respiratory distress. Patient has no paraspinal tenderness. Spinal deformity [cannot] be appreciated. The gait of the patient is [nonantalgic] Bilateral extremities were evaluated and demonstrates sensation intact to light touch. Palpable pedal pulses are present. No significant edema is present. Bilateral knees were examined and the patient has full strength and range of motion.. The left hip was examined. Patient was able to flex to 90 degrees, adduct to 30 degrees, abduct to 40 degrees, internally rotate to 20 degrees, and externally rotate to 20 degrees. Patient has a negative logroll. Stinchfield is negative. T he patient is nontender diffusely to touch. Right hip incision is clean dry and intact Assessment and Plan Problem List (1) Arthritis of right hip: Status: Acute Plan: Patient is a 73-year-old female with right hip arthritis of significant severity. She is doing well status post total hip replacement. She feels well at all and is walking without assistive device. We will transition her to outpatient physical therapy Advanced Care Planning Discussion Advance care planning discussed with:: patient Office Procedures GNS Level of Care Nursing/Assessment Patient Status: Established Patient Nursing Assessment/Reassesment: Medication Reconciliation, Update PMH in EMR and Vital Signs Coordination of Care: Complex Care and Chronic Disease 1-5, Consent,records obtained, informed consent, Education Simp Pt/Fam, Results/Orders obtained and Staff clarify orders Established Patient Charge Established Patient Point Assignment: 90 Established Patient Point Charge: EP Level 3 (80-115) MA Intake Visit Data Collection New Patient or Established: Established Patient (seen at [facility] within 3 years) Reason for Visit:: 2 WK POST OP RIGHT FRACISCO Seen by Clinical Staff ONLY (RN/MA): No Exhibit Designer Required: No PCP or OBGYN visit in last 3 months: Yes Hx Now: No Do You Feel Safe at Home: Yes Authorities Contacted: N/A Questionairres Past Medical History Past Medical History Have you ever been diagnosed with any of the following: Neurological Problems Seizures: No Cardiology Problems Hypercholesterolemia: Yes (PO MEDS) Congestive Heart Failure: No Hypertension: Yes (PO MEDS) Respiratory Problems Chronic Obstructive Pulmonary Disease (COPD): No Smoking: No Smoking Exposure: No Stomache/Intestinal Problems Hepatitis: No Colorectal Cancer: No Genital/Urinary Problems Renal Disease: No Reproductive Problems Breast Cancer: Yes (LEFT BREAST) Endometriosis: No Genital Herpes: No Gonorrhea: No Pelvic Inflammatory Disease: No Previous Pregnancies: Yes () Syphilis: No Uterine Prolapse: No Musculoskeletal Problems Bone Cancer: No Arthritis: Yes Endocrine Problems Diabetes Mellitus Type 1: No Diabetes Mellitus Type 2: No Blood Problems Anemia: No Leukemia: No Hemophilia: No Thalassemia: No Sickle Cell Disease: No Clotting Problems: No Other Problems Hospitalization: No Down Syndrome: No Developmental Delay: No Shingles: No Falls: No Blood Transfusions: No Blood Transfusion Reaction: No Anesthesia Reactions: No Organ Transplant: No Chemotherapy: No Radiation Therapy: Yes (LEFT BREAST CA 2016) Hyperbaric Therapy: No MRSA: No VRSA: No Vancomycin-Resistant Enterococci: No Human Immunodeficiency Virus (HIV): No Chicken Pox: No Measles: No Mumps: No Rubella (Turkish Measles): No Pertussis: No Clostridium Difficile: No Cervical Cancer: No Lung Cancer: No Ovarian Cancer: No Subjective Visit Visit for: follow up visit, post op #1 and hip (RIGHT HIP) Immunization / Flu Flu Vaccine in the Last 12 Months: Yes Flu Vaccine Exclusion Criteria: Already Received History of Present Illness Chief complaint: PRE OP RIGHT FRACISCO Patient is a 73-year-old female with right hip pain. She is 2 weeks status post right total hip replacement. She Is doing well and is using a walker Personal History Red flag PMH: none BMI Counceling provided: Yes Pain Pain level (0-10): 0 Pain duration: CONSTANT Pain location: inside (medial) Pain quality: sharp Pain timing: night, increases with activity and stairs Associated signs & symptoms: none Ambulatory data Ambulatory device: none Treatments Improvement with previous injections: No Improvement with PT: No Improvement with NSAIDS: no Review of Systems Review of Systems: All systems negative unless otherwise noted in HPI.
[2024-07-29 11:15] VITALS: BP 147/80; PULSE 58; RESP 17; TEMP 36.9; O2SAT 98; BMI 26.0
== END 2024-07-29 11:17 | disposition home or self-care (01) ==
PROVIDERS: PCP Specialist; Referring Provider Specialist; Supervising Provider Orthopaedic Surgery Adult Reconstructive Orthopaedic Surgery; Visit Provider Orthopaedic Surgery Adult Reconstructive Orthopaedic Surgery
DX: M16.11 Unilateral primary osteoarthritis, right hip (principal); Z96.641 Presence of right artificial hip joint; I10 Essential (primary) hypertension; E78.00 Pure hypercholesterolemia, unspecified
CPT/HCPCS: 99213; G0463

== ENCOUNTER 2024-09-07 10:58 | Outpatient (AMB) | payer MEDICARE, SELFPAY ==
[2024-09-07 11:26] VITALS: BP 176/81; PULSE 60; RESP 18; TEMP 36.1; O2SAT 99; BMI 25.1
--- NOTE | 2024-09-07 11:26 | ORTHONT_ITS ---
Vital signs 09/07/24 11:26 Height 1.52 m Height Method Stated Weight 58.145 kg Weight Measurement Method Standing Scale BMI 25.1 BP 176/81 H Blood Pressure Source Automatic Cuff Blood Pressure Location Right Upper Arm Position Sitting Respiration 18 Pulse 60 Pulse Source Monitor Temp 96.9 F Temp Source Temporal Artery Scan Pulse Oximetry (%) 99 Oxygen Delivery Method Room Air Med/Allergies Allergies & Medications Allergies No Known Allergies Allergy (Verified 09/07/24 11:26) Medication Reconciliation amlodipine 5 mg tablet (Norvasc) 5 mg PO BID #0 tabs 02/25/17 [History Confirmed 09/07/24] valsartan 160 mg tablet (Diovan) 160 mg PO BID #0 tabs 02/25/17 [History Confirmed 09/07/24] biotin 5,000 mcg disintegrating tablet 1 tab PO QDAY 09/26/17 [History Confirmed 09/07/24] cholecalciferol (vitamin D3) 50 mcg (2,000 unit) capsule (Vitamin D3) 1 tab PO QDAY 09/26/17 [History Confirmed 09/07/24] metoprolol succinate 25 mg tablet,extended release 24 hr 25 mg PO QDAY 07/06/24 [History Confirmed 09/07/24] naproxen 250 mg tablet 250 mg PO BID PRN pain 07/12/24 [History Confirmed 09/07/24] rosuvastatin 5 mg tablet 5 mg PO DAILY 07/12/24 [History Confirmed 09/07/24] acetaminophen 500 mg tablet (Acetaminophen Extra Strength) 1,000 mg (2 x 500 mg) PO Q6H PRN pain #90 tabs 07/14/24 [Rx Confirmed 09/07/24] aspirin 81 mg tablet,delayed release 81 mg PO BID #60 tabs 07/14/24 [Rx Con firmed 09/07/24] doxycycline hyclate 100 mg tablet 100 mg PO BID #14 tabs 07/14/24 [Rx Confirmed 09/07/24] oxycodone 5 mg tablet 5 mg PO Q6H PRN pain #28 tabs 07/14/24 [Rx Confirmed 09/07/24] pregabalin 75 mg capsule 75 mg PO BID #45 caps 07/14/24 [Rx Confirmed 09/07/24] sennosides 8.6 mg-docusate sodium 50 mg tablet (Senna-S) 1 tab-cap PO QDAY #30 tabs 07/14/24 [Rx Confirmed 09/07/24] meloxicam 7.5 mg tablet 7.5 mg PO QDAY #45 tabs 09/07/24 [Rx] Exam Exam Patient is in no acute distress and is cooperative with the examination today. Breathing is nonlabored. In no respiratory distress. Patient has no paraspinal tenderness. Spinal deformity [cannot] be appreciated. The gait of the patient is [nonantalgic] Bilateral extremities were evaluated and demonstrates sensation intact to light touch. Palpable pedal pulses are present. No significant edema is present. Bilateral knees were examined and the patient has full strength and range of motion.. The left hip was examined. Patient was able to flex to 90 degrees, adduct to 30 degrees, abduct to 40 degrees, internally rotate to 20 degrees, and externally rotate to 20 degrees. Patient has a negative logroll. Stinchfield is negative. The patient is nontender diffusely to touch. Right hip incision is clean dry and intact Assessment and Plan Problem List (1) Arthritis of right hip: Status: Acute Plan: Patient is a 73-year-old female with right hip arthritis of significant severity. She is doing well status post total hip replacement. She is doing well and has no pain at all Advanced Care Planning Discussion Advance care planning discussed with:: patient Office Procedures GNS Level of Care Nursing/Assessment Patient Status: Established Patient Nursing Assessment/Reassesment: Medication Reconciliation, Update PMH in EMR and Vital Signs Coordination of Care: Complex Care and Chronic Disease 1-5, Education Complex Pt/Fam, Consent,records obtained, informed consent, Results/Orders obtained and Staff clarify orders Established Patient Charge Established Patient Point Assignment: 95 Established Patient Point Charge: EP Level 3 (80-115) MA Intake Visit Data Collection New Patient or Established: Established Patient (seen at [facility] within 3 years) Reason for Visit:: 6 WEEK POST OP Seen by Clinical Staff ONLY (RN/MA): No Verbal consent obtained for Telemed visit?: No Self Contained Behavior Unit Teacher Required: No PCP or OBGYN visit in last 3 months: Yes Hx Now: No Do You Feel Safe at Home: Yes Questionairres Past Medical History Past Medical History Have you ever been diagnosed with any of the following: Neurological Problems Seizures: No Cardiology Problems Hypercholesterolemia: Yes (PO MEDS) Congestive Heart Failure: No Hypertension: Yes (PO MEDS) Respiratory Problems Chronic Obstructive Pulmonary Disease (COPD): No Smoking: No Smoking Exposure: No Stomache/Intestinal Problems Hepatitis: No Colorectal Cancer: No Genital/Urinary Problems Renal Disease: No Reproductive Problems Breast Cancer: Yes (LEFT BREAST) Endometriosis: No Genital Herpes: No Gonorrhea: No Pelvic Inflammatory Disease: No Previous Pregnancies: Yes () Syphilis: No Uterine Prolapse: No Musculoskeletal Problems Bone Cancer: No Arthritis: Yes Endocrine Problems Diabetes Mellitus Type 1: No Diabetes Mellitus Type 2: No Blood Problems Anemia: No Leukemia: No Hemophilia: No Thalassemia: No Sickle Cell Disease: No Clotting Problems: No Other Problems Hospitalization: No Down Syndrome: No Developmental Delay: No Shingles: No Falls: No Blood Transfusions: No Blood Transfusion Reaction: No Anesthesia Reactions: No Organ Transplant: No Chemotherapy: No Radiation Therapy: Yes (LEFT BREAST CA 2016) Hyperbaric Therapy: No MRSA: No VRSA: No Vancomycin-Resistant Enterococci: No Human Immunodeficiency Virus (HIV): No Chicken Pox: No Measles: No Mumps: No Rubella ([place] Measles): No Pertussis: No Clostridium Difficile: No Cervical Cancer: No Lung Cancer: No Ovarian Cancer: No Subjective Visit Visit for: follow up visit and hip Immunization / Flu Flu Vaccine in the Last 12 Months: No Flu Vaccine Exclusion Criteria: No Exclusion Criteria History of Present Illness Chief complaint: F/U 6 WEEK POST OP Patient is a 73-year-old female with right hip pain. She is 6 weeks status post right total hip replacement. She is very happy and is using no assistive device. She needs x-rays today. She also reports that she has been having pain in the back of her knee. There is a palpable popliteal cyst there Personal History Occupation: RETIRED Red flag PMH: none BMI Counceling provided: Yes Pain Pain level (0-10): 3 Pain duration: CONSTANT Pain location: posterior Pain quality: dull and aching Pain timing: increases with activity Associated signs & symptoms: none Ambulatory data Ambulatory device: none Treatments Improvement with previous injections: No Improvement with PT: No Improvement with NSAIDS: no Review of Systems Review of Systems: All systems negative unless otherwise noted in HPI.
--- NOTE | 2024-09-07 11:30 | XR_ITS ---
Examination:Right hip AP, lateral, AP pelvis 3 views Technique: Hip AP lateral, AP pelvis, 3 views Exam date and time:September 07, 2024 1146 hours INDICATIONS: Right hip replacement July 2024 FINDINGS: Total right hip arthroplasty. Satisfactory alignment. No fracture. No loosening of the prosthetic components Left hip bones of the pelvis intact IMPRESSION: Total right knee arthroplasty with satisfactory alignment.
--- NOTE | 2024-09-07 11:30 | XR_ITS ---
Examination: Right knee 4 views PA left knee single view TECHNIQUE: Weightbearing right knee AP flexion weightbearing lateral and axial 4 views PA left knee weightbearing single view total 5 views Date and time: September 07, 2024 1146 hours INDICATIONS: Right knee pain beginning 2 weeks ago. 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
== END 2024-09-07 11:36 | disposition home or self-care (01) ==
LOC: HODSRG 10:58
PROVIDERS: PCP Specialist; Referring Provider Specialist; Supervising Provider Orthopaedic Surgery Adult Reconstructive Orthopaedic Surgery; Visit Provider Orthopaedic Surgery Adult Reconstructive Orthopaedic Surgery
DX: M16.11 Unilateral primary osteoarthritis, right hip (principal); Z96.641 Presence of right artificial hip joint; M17.11 Unilateral primary osteoarthritis, right knee
CPT/HCPCS: 73502; 73564; 99213; G0463

== ENCOUNTER 2024-11-09 07:58 | Outpatient (AMB) | payer MEDICARE, SELFPAY ==
--- NOTE | 2024-11-09 08:07 | PD.ORTHCLVIS ---
Vital signs 11/09/24 08:08 Height 1.52 m Height Method Stated Weight 58.258 kg Weight Measurement Method Standing Scale BMI 25.2 BP 159/80 H Blood Pressure Source Automatic Cuff Blood Pressure Location Left Upper Arm Position Sitting Respiration 18 Pulse 56 L Pulse Source Monitor Temp 97.5 F Temp Source Temporal Artery Scan Pulse Oximetry (%) 97 Oxygen Delivery Method Room Air Med/Allergies Allergies & Medications Allergies No Known Allergies Allergy (Verified 11/09/24 08:08) Medication Reconciliation amlodipine 5 mg tablet (Norvasc) 5 mg PO BID #0 tabs 02/25/17 [History Confirmed 11/09/24] valsartan 160 mg tablet (Diovan) 160 mg PO BID #0 tabs 02/25/17 [History Confirmed 11/09/24] biotin 5,000 mcg disintegrating tablet 1 tab PO QDAY 09/26/17 [History Confirmed 11/09/24] cholecalciferol (vitamin D3) 50 mcg (2,000 unit) capsule (Vitamin D3) 1 tab PO QDAY 09/26/17 [History Confirmed 11/09/24] metoprolol succinate 25 mg tablet,extended release 24 hr 25 mg PO QDAY 07/06/24 [History Confirmed 11/09/24] naproxen 250 mg tablet 250 mg PO BID PRN pain 07/12/24 [History Confirmed 11/09/24] rosuvastatin 5 mg tablet 5 mg PO DAILY 07/12/24 [History Confirmed 11/09/24] acetaminophen 500 mg tablet (Acetaminophen Extra Strength) 1,000 mg (2 x 500 mg) PO Q6H PRN pain #90 tabs 07/14/24 [Rx Confirmed 11/09/24] aspirin 81 mg tablet,delayed release 81 mg PO BID #60 tabs 07/14/24 [Rx Confirmed 11/09/24] doxycycline hyclate 100 mg tablet 100 mg PO BID #14 tabs 07/14/24 [Rx Confirmed 11/09/24] oxycodone 5 mg tablet 5 mg PO Q6H PRN pain #28 tabs 07/14/24 [Rx Confirmed 11/09/24] pregabalin 75 mg capsule 75 mg PO BID #45 caps 07/14/24 [Rx Confirmed 11/09/24] sennosides 8.6 mg-docusate sodium 50 mg tablet (Senna-S) 1 tab-cap PO QDAY #30 tabs 07/14/24 [Rx Confirmed 11/09/24] meloxicam 7.5 mg tablet 7.5 mg PO QDAY #45 tabs 09/07/24 [Rx Confirmed 11/09/24] Exam Exam Patient is in no acute distress and is cooperative with the examination today. Breathing is nonlabored. In no respiratory distress. Patient has no paraspinal tenderness. Spinal deformity [cannot] be appreciated. The gait of the patient is [nonantalgic] Bilateral extremities were evaluated and demonstrates sensation intact to light touch. Palpable pedal pulses are present. No significant edema is present. Bilateral knees were examined and the patient has full strength and range of motion.. The left hip was examined. Patient was able to flex to 90 degrees, adduct to 30 degrees, abduct to 40 degrees, internally rotate to 20 degrees, and externally rotate to 20 degrees. Patient has a negative logroll. Stinchfield is negative. The patient is nontender diffusely to touch. Right hip incision is clean dry and intact Right knee is tender to palpation medially. There is a palpable Hunter's cyst Assessment and Plan Problem List (1) Arthritis of right hip: Status: Acute Plan: Patient is a 73-year-old female with right hip arthritis of significant severity. She is doing well status post total hip replacement. She is doing well and has no pain at all (2) Arthritis of right knee: Status: Acute Plan: Recommend knee cortisone injection as patient would like to proceed with conservative treatment at this time. The risks and benefits of the procedure were reviewed with the patient and patient gave verbal consent to continue with the procedure. Procedure: performed by Dr. Steward Using sterile technique the Right knee was thoroughly prepped with alcohol, and approximately 1 cc of Depo-Medrol 80mg/mL and 4 cc of 0.2% ropivacaine was injected without resistance into the medial tibial femoral joint space. The patient tolerated the procedure. Advanced Care Planning Discussion Advance care planning discussed with:: patient Office Procedures GNS Level of Care Nursing/Assessment Patient Status: Established Patient Nursing Assessment/Reassesment: Medication Reconciliation, Update PMH in EMR and Vital Signs Coordination of Care: Complex Care and Chronic Disease 1-5, Education Complex Pt/Fam, Consent,records obtained, informed consent, Results/Orders obtained and Staff clarify orders Established Patient Charge Established Patient Point Assignment: 95 Established Patient Point Charge: EP Level 3 (80-115) Surgical Proc/IM SQ injection Major Surgical Procedure: Yes (KNEE INJECTION) Medication Given Medication Given Medication Given: Yes Documented Dose Given: 1 Route: Infiitration Medication Given Medication Given Medication Given: Yes Documented Dose Given: 4 Route: Infiitration Office Meds methylprednisolone acetate 80 mg/mL suspension for injection Performing Provider: Patrick Steward MD Performing Location: [facility] Administered by: Patrick Steward MD on 11/09/24 08:59 Dose Route Admin Location Dispensed Lot Number Expiration Date [facility] Topographical [employer] 80 mg intra-articular KNEE 1 mL [id number] 05/14/26 1283-8422-54 [facility] ropivacaine (PF) 2 mg/mL (0.2 %) injection solution Performing Provider: Patrick Steward MD Performing Location: [facility] Administered by: Patrick Steward MD on 11/09/24 08:59 Dose Route Admin Location Dispensed Lot Number Expiration Date [facility] Top[employer] 20 mL Infiltration KNEE 20 mL [id number] 03/13/26 81041-403-07 [facility] Intake Visit Data Collection New Patient or Established: Established Patient (seen at [facility] within 3 years) Seen by Clinical Staff ONLY (RN/MA): No Verbal consent obtained for Telemed visit?: No Site Foreman Required: No PCP or OBGYN visit in last 3 months: Yes Hx Now: No Do You Feel Safe at Home: Yes Questionairres Past Medical History Past Medical History Have you ever been diagnosed with any of the following: Neurological Problems Seizures: No Cardiology Problems Hypercholesterolemia: Yes (PO MEDS) Congestive Heart Failure: No Hypertension: Yes (PO MEDS) Respiratory Problems Chronic Obstructive Pulmonary Disease (COPD): No Smoking: No Smoking Exposure: No Stomache/Intestinal Problems Hepatitis: No Colorectal Cancer: No Genital/Urinary Problems Renal Disease: No Reproductive Problems Breast Cancer: Yes (LEFT BREAST) Endometriosis: No Genital Herpes: No Gonorrhea: No Pelvic Inflammatory Disease: No Previous Pregnancies: Yes () Syphilis: No Uterine Prolapse: No Musculoskeletal Problems Bone Cancer: No Arthritis: Yes Endocrine Problems Diabetes Mellitus Type 1: No Diabetes Mellitus Type 2: No Blood Problems Anemia: No Leukemia: No Hemophilia: No Thalassemia: No Sickle Cell Disease: No Clotting Problems: No Other Problems Hospitalization: No Down Syndrome: No Developmental Delay: No Shingles: No Falls: No Blood Transfusions: No Blood Transfusion Reaction: No Anesthesia Reactions: No Organ Transplant: No Chemotherapy: No Radiation Therapy: Yes (LEFT BREAST CA 2016) Hyperbaric Therapy: No MRSA: No VRSA: No Vancomycin-Resistant Enterococci: No Human Immunodeficiency Virus (HIV): No Chicken Pox: No Measles: No Mumps: No Rubella (Chilean Measles): No Pertussis: No Clostridium Difficile: No Cervical Cancer: No Lung Cancer: No Ovarian Cancer: No Subjective Visit Visit for: follow up visit and hip Immunization / Flu Flu Vaccine in the Last 12 Months: No Flu Vaccine Exclusion Criteria: No Exclusion Criteria History of Present Illness Chief complaint: F/U 6 WEEK POST OP Patient is a 73-year-old female with right hip pain. She is 6 weeks status post right total hip replacement. She is very happy and is using no assistive device. She also reports that she has been having pain in the back of her knee. There is a palpable popliteal cyst there. We did try meloxicam and she reports it did not help. She reports that there is some stomach irritation and she would like to try something else Personal History Occupation: RETIRED Red flag PMH: none BMI Counceling provided: Yes Pain Pain level (0-10): 3 Pain duration: CONSTANT Pain location: posterior Pain quality: dull and aching Pain timing: increases with activity Associated signs & symptoms: none Ambulatory data Ambulatory device: none Treatments Improvement with previous injections: No Improvement with PT: No Improvement with NSAIDS: no Review of Systems Review of Systems: All systems negative unless otherwise noted in HPI.
[2024-11-09 08:08] VITALS: BP 159/80; PULSE 56; RESP 18; TEMP 36.4; O2SAT 97; BMI 25.2
== END 2024-11-09 08:30 | disposition home or self-care (01) ==
LOC: HODSRG 07:58
PROVIDERS: PCP Specialist; Referring Provider Specialist; Supervising Provider Orthopaedic Surgery Adult Reconstructive Orthopaedic Surgery; Visit Provider Orthopaedic Surgery Adult Reconstructive Orthopaedic Surgery
DX: M16.51 Unilateral post-traumatic osteoarthritis, right hip (principal); M17.11 Unilateral primary osteoarthritis, right knee; Z96.641 Presence of right artificial hip joint; I10 Essential (primary) hypertension; E78.00 Pure hypercholesterolemia, unspecified; M71.21 Synovial cyst of popliteal space [Baker], right knee
CPT/HCPCS: 20610; 99213; J1010; J2795; G0463